=== PATIENT | male | born 1990 | race Caucasian/White ===

== ENCOUNTER → 2021-10-09 17:52 | Outpatient (CLI) | payer OTHER, SELFPAY | PROVIDERS: Visit Provider Nurse Practitioner | DX: Z20.822 Contact with and (suspected) exposure to COVID-19 (principal) | CPT/HCPCS: C9803; U0003; U0005 ==

== ENCOUNTER 2021-10-21 16:46 | Emergency (ER) | payer BC, SELFPAY ==
--- NOTE | 2021-10-21 19:19 | HMH.EDUTC ---
[facility] [place] Disposition Clinical Impression: Exposure to COVID-19 virus Pharyngitis Qualifiers: Pharyngitis/tonsillitis etiology: unspecified etiology Qualified Code(s): J02.9 - Acute pharyngitis, unspecified Disposition: Home, Self-Care Condition on Discharge: Good Instructions: Strep Throat, DI for Strep Throat Additional Instructions: Drink plenty of fluids. Take tylenol or ibuprofen for pain or fever. Take the medications as directed. Follow up with your regular doctor. GO TO THE ER FOR ANY WORSENING SYMPTOMS Quarantine until you know the results of your covid-19 test. Notify your school or workplace of your results and follow their instructions regarding return to work/school. The cough medication (promethazine dm) will make you drowsy, so don't drive or operate heavy machinery after taking it. Prescriptions: Promethazine/Dextromethorphan [Promethazine-Dm Syrup] 5 ml PO Q6HP PRN #240 ml PRN Reason: Cough Transmission Status: Received by [id number] methylPREDNISolone [Medrol] 4 mg PO DIRECTED 6 Days #21 packet Transmission Status: Received by [id number] guaiFENesin [Mucinex 600mg tablet] 1 - 2 tab PO BIDP PRN #30 tab PRN Reason: Congestion Transmission Status: Received by [id number] Referrals: Treva Haney MD [Primary Care Provider] - Forms: Work/School Release Time of Disposition: 19:55 Medical Decision Making - Medical Records Medical records reviewed: No: I reviewed the patient's medical records. - Jose Inquiry Pt receiving controlled substance: No Vital Signs: 10/21/21 19:39 10/21/21 20:34 Temperature 98.9 F 98.9 F Temperature Source Oral Pulse Rate 79 Pulse Rate [Left] 79 Respiratory Rate 20 20 Blood Pressure 158/107 H Blood Pressure [Right Arm] 158/107 H Blood Pressure Mean [Right Arm] 124 02 Sat by Pulse Oximetry 96 - Lab Data Lab results reviewed: Yes: I reviewed the patient's lab results. Lab Results 10/21/21 19:18: Group A Strep Rapid Negative Orders (Tests/Meds): ORDERS Category Date Time Status Covid-19 Nasal PCR ([facility]) Routine Lab 10/21/21 19:54 Received Strep Screen Confirmation Stat Micro 10/21/21 19:18 Received [facility] [place] HPI - General Stated complaint: covid/strep test sore throat GARCIA Time Seen by Provider: 10/21/21 19:19 - History of Present Illness Provider Complaint: He states that for the past 2 days he has had a sore throat, chilling, low grade fever,chest congestion and a nonproductive cough. - Related Data Previous Rx's Medication Instructions Recorded Promethazine/Dextromethorphan 5 ml PO Q6HP PRN #240 ml 10/21/21 [Promethazine-Dm Syrup] guaiFENesin [Mucinex 600mg tablet] 1 - 2 tab PO BIDP PRN #30 tab 10/21/21 methylPREDNISolone [Medrol] 4 mg PO DIRECTED 6 Days #21 10/21/21 packet Allergies Allergy/AdvReac Type Severity Reaction Status Date / Time No Known Allergies Allergy Verified 10/21/21 19:41 [facility] History - Hepatitis A Screen Attestation statement:: This patient has been screened for Hepatitis A risk factors. I have reviewed the patient's past medical history: Yes ROS Obtained: Yes All systems reviewed & no additional complaints - Constitutional Constitutional: Reports as per HPI - Eyes Eyes: Denies eye discharge - ENT Ears, Nose, Mouth, and Throat: Reports as per HPI - Cardiovascular Cardiovascular: Denies chest pain - Respiratory Respiratory: Reports chest congestion, Reports cough, Denies dyspnea, Denies stridor, Denies wheezing - Gastrointestinal Gastrointestingal: Reports: nausea. Denies: abdominal pain, diarrhea, vomiting - Musculoskeletal Musculoskeletal: Denies joint pain - Integumentary/Breasts Skin/Breast: Denies rash Physical Exam - General General appearance: alert, in no apparent distress - Head Head exam: atraumatic, normocephalic, normal inspection - Eye Eye exam: Present: normal appearance, PER
[2021-10-21 19:39] VITALS: BP 158/107; PULSE 79; RESP 20; TEMP 37.2; O2SAT 96; BMI 29.5
[2021-10-21 20:07] LABS: Strep Scrn Group A (Rapid) Negative (Negative)
[2021-10-21 20:34] VITALS: BP 158/107; PULSE 79; RESP 20; TEMP 37.2
== END 2021-10-21 20:41 | disposition home or self-care (01) ==
PROVIDERS: Emergency Provider Nurse Practitioner Family; PCP Family Medicine
DX: Z20.822 Contact with and (suspected) exposure to COVID-19 (principal); J02.9 Acute pharyngitis, unspecified
CPT/HCPCS: 87430; C9803; U0003; U0005

== ENCOUNTER → 2021-10-27 09:07 | Outpatient (CLI) | payer BC, SELFPAY | PROVIDERS: Visit Provider Nurse Practitioner | DX: U07.1 COVID-19 (principal) | CPT/HCPCS: C9803; U0003; U0005 ==

== ENCOUNTER 2024-02-04 16:33 | Emergency (ER) | payer BC, SELFPAY ==
--- NOTE | 2024-02-04 16:42 | ED_ITS ---
Discharge Plan Disposition Patient Disposition: Home, Self-Care Condition: Good Prescriptions Prescriptions: New cephalexin 500 mg capsule 500 mg PO QID Qty: 40 0RF mupirocin 2 % ointment 1 applic topical TID 7 Days Qty: 15 0RF methylprednisolone 4 mg Tablets,Dose Pack 4 mg PO DIRECTED 6 Days Qty: 21 0RF Rx Instructions: Take 1 pack as directed for 6 days No Action buspirone [BuSpar] 10 mg Tablet 10 mg PO BID bupropion HCl 300 mg tablet extended release 24 hr 300 mg PO DAILY Patient Comments: TAKE 1 TABLET BY MOUTH EVERY DAY IN THE MORNING Referrals Follow up/Referrals: Treva Haney MD [Primary Care Provider] - See instructions Activity Restrictions/Add. Instructions Additional Instructions/Restrictions: Drink plenty of fluids. Take tylenol for pain or fever. Take the medications as directed. Follow up with your regular doctor. GO TO THE ER FOR ANY WORSENING SYMPTOMS Apply the topical antibiotic ointment (mupirocin/bactroban) as directed to the infected area on your left leg. Clinical Impressions Clinical Impression: Hand, foot and mouth disease Stand Alone Forms Stand Alone Forms: Work/School Release Instructions Patient Instructions: Hand, Foot, and Mouth Disease, Cephalexin, Methylprednisolone, Mupirocin, Dexamethasone Injection Discharge ED Provider: Christopher Platt [facility] [place] HPI General Stated complaint: feet, legs swollen with rash Time Seen by Provider: 02/04/24 16:42 History of Present Illness Provider Complaint: He states that for the past 4 days he has had blisters on the bottoms of his feet and his palms. He had a sore throat when his symptoms first began, but that resolved. He states that the blisters on his feet make it very painful for his to walk. His child had hand, foot and mouth disease last week. He also states that he has a bug bite on his left lower leg that has been causing itching and pain at the site. Related Data Home Medications Medication Instructions Recorded Confirmed bupropion HCl 300 mg 24 hr tablet, 300 mg PO DAILY 02/04/24 02/04/24 extended release buspirone 10 mg tablet 10 mg PO BID 02/04/24 02/04/24 Previous Rx's Medication Instructions Recorded cephalexin 500 mg capsule 500 mg PO QID #40 caps 02/04/24 methylprednisolone 4 mg tablets in 4 mg PO DIRECTED 6 days #21 tabs 02/04/24 a dose pack mupirocin 2 % topical ointment 1 applic topical TID 7 days #15 02/04/24 grams Allergies Allergy/AdvReac Type Severity Reaction Status Date / Time No Known Allergies Allergy Verified 10/21/21 19:41 [facility] Disclaimer: The information contained in this section may have been updated after the patient was seen, as this information can be updated by other users. Medical History (Updated 02/04/24 @ 17:27 by Christopher Platt APRN) Depression Anxiety History of gastroesophageal reflux (GERD) Social History Smoking Status: Never smoker alcohol intake: never current occupational status: employed Travel in the last 8 weeks: None ROS Obtained: Yes All systems reviewed & no additional complaints except as documented Constitutional Constitutional: Denies chills and Denies fever(s) Eyes Eyes: Denies eye discharge ENT Ears, Nose, Mouth, and Throat: Denies dizziness, Denies otalgia and Denies sore throat Cardiovascular Cardiovascular: Denies chest pain Respiratory Respiratory: Denies shortness of breath, Denies chest congestion, Denies cough, Denies stridor and Denies wheezing Gastrointestinal Gastrointestingal: Denies nausea or vomiting Musculoskeletal Musculoskeletal: Reports system reviewed and no additional complaints, except as documented and Denies arthralgias Integumentary/Breasts Skin/Breast: Reports as per HPI, Reports redness, Reports rash and Reports wounds Neurologic Neurologic: Denies dizziness and Denies paresthesias Allergic/Immunologic Allergic/Immunologic: Denies wheezing Physical Exam General General appearance: alert and in no apparent distress Head Head exam: atraumatic, normocephalic and normal inspection Eye Eye exam: Present normal appearance, PERRL and EOMI ENT ENT exam: Present normal exam, normal oropharynx, mucous membranes moist, TM's normal bilaterally and normal external ear exam Neck Neck exam: Present normal inspection, full ROM and trachea midline; Absent meningismus or lymphadenopathy Chest Chest inspection: Present normal inspection and symmetric chest wall rise; Absent tenderness Respiratory Respiratory exam: Present normal lung sounds bilaterally; Absent respiratory distress Cardiovascular Cardiovascular exam: Present regular rate and normal rhythm; Absent JVD Abdominal Exam Abdominal exam: Present soft and normal bowel sounds; Absent distention, tenderness or guarding Extremities Exam Extremities exam: Present normal inspection, full ROM and normal capillary refill; Absent calf tenderness Back Exam Back exam: Present normal inspection; Absent tenderness Neurological Exam Neurological exam: Present alert and oriented X3 Psychiatric Psychiatric exam: Present normal affect and normal mood Skin Skin exam: Present rash (He has vesicles on the bottoms of his feel and his pal ms. He has an area of erythema on the inner aspect of his left calf. ) Lymphatic Lymphatic Findings: no adenopathy Medical Decision Making Medical Records Medical records reviewed: No I reviewed the patient's medical records. Jose Inquiry Pt receiving controlled substance: No
[2024-02-04 16:45] VITALS: BP 134/81; PULSE 96; RESP 18; TEMP 36.9; O2SAT 97; BMI 30.2
[2024-02-04 17:13] VITALS: BP 134/81; PULSE 96; RESP 18; TEMP 36.9; O2SAT 97
[2024-02-04] MEDS: DEXAMETHASONE 4MG/ML 1ML VIAL 8 MG IM (17:13)
== END 2024-02-04 17:34 | disposition home or self-care (01) ==
PROVIDERS: Emergency Provider Nurse Practitioner Family; PCP Family Medicine
DX: M79.671 Pain in right foot; M79.672 Pain in left foot; B08.4 Enteroviral vesicular stomatitis with exanthem
CPT/HCPCS: 96372; 99212; 99214; G0463